=== PATIENT | female | born 1950 | race African-American/Black ===

== ENCOUNTER 2020-04-24 10:57 | Day surgery (SDC) | payer MEDICARE, BC ==
[~2020-04-24] VITALS: Ht 190.5 cm; Wt 87.6 kg
[2020-04-24] VITALS (11 sets, daily range): BP systolic 116–161; BP diastolic 57–103; PULSE 57–87; TEMP 98.7
[~2020-04-24 10:57] MED LIST: ASPIRIN 32325 MG/TAB PO; NORVASC 5MG5 MG/TAB PO; OSPHENA; OSPHENA PO; PLAVIX 75MG TAB75 MG PO; PREMPRO 0.3 MG-1 TAB PO; TOPROL XL 50MG50 MG PO; VOLTAREN 75 DR75 MG PO
[2020-04-24 12:02] LABS: HEMOGLOBIN 11.5 g/dl (12.5-16.0); MEAN CELL VOLUME 77 fl (80.0-100.0); MEAN CORPUSCULAR HEMOGLOBIN 25 pg (27.0-31.0); MEAN CORPUSCULAR HGB CONC 32 g/dl (33.0-37.0); MEAN PLATELET VOLUME 10.6 fl (7.4-10.4); PLATELET COUNT 275 K/mm3 (130-400); REDCELL DISTRIBUTION WIDTH-CV 14.7 % (11.5-14.5)
[2020-04-24 12:13] LABS: CALCIUM 9.2 mg/dL (8.4-10.2); CREATININE, serum 0.78 (0.52-1.25); POTASSIUM 3.9 mmol/L (3.4-5.0)
[2020-04-24 12:14] LABS: INR 1.1 (0.8-3.0); PROTHROMBIN TIME 11.9 SECONDS (9.7-12.8)
[2020-04-24] MEDS ORDERED: ASPIRIN 81M81 MG/TA2 PO (13:39)
[2020-04-24] MEDS ORDERED: VITAMINC1000TA PO (13:40)
[2020-04-24] MEDS ORDERED: IRON TABLETS325 MG PO (13:40)
[2020-04-24] MEDS ORDERED: FOLIC ACID0.8 MG PO (13:41)
[2020-04-24] MEDS ORDERED: PRINZIDE 12.5 M1 TAB PO (13:42)
--- NOTE | 2020-04-24 14:03 | NUR ---
Pt to procedure.Report to Ramiro Barton.
--- NOTE | 2020-04-24 14:09 | NUR ---
SEE MERGE DOCUMENTATION FOR MEDICATION ADMINSTRATION TIMES AND INTRA/POST PROCEDURE SEDATION ASSESSMENTS. RIGHT HAND BARBEAU TEST POSITIVE.
--- NOTE | 2020-04-24 18:10 | NUR ---
Discharge instructions given to pt.Pt verbalizes understanding.INt removed,catheter tip intact.pt escorted out via wheelchair by this nurse.
== END 2020-04-24 18:11 | disposition home or self-care (01) ==
LOC: COL.CAR 10:57
PROVIDERS: Internal Medicine Cardiovascular Disease
DX: I25.10 Atherosclerotic heart disease of native coronary artery without angina pectoris (principal); R94.39 Abnormal result of other cardiovascular function study; I10 Essential (primary) hypertension; Z96.651 Presence of right artificial knee joint
CPT/HCPCS: J1644; J2250; J3010; Q9967